=== PATIENT | female | born 1970 | race Caucasian/White ===

== ENCOUNTER 2017-01-09 13:41 | Observation (INO) | payer MEDICAID, OTHER ==
[2017-01-09 14:14] VITALS: BMI 26.5
--- NOTE | 2017-01-09 14:45 | C.PDOC ---
History Of Present Illness 46 yr old female with PMHx of anemia, presents to the ER for sore throat, headache, dizziness and feeling lightheaded and SOB while going upstairs, for the past 1 month. Patient states she has been infused in the past and admitted for anemia. Also reports of an ovarian cyst. Patient denies fever, chills, chest pain, nausea, vomiting, vaginal bleeding, weakness or numbness. Time Seen by Provider: 01/09/17 14:09 Chief Complaint (Nursing): ENT Problem History Per: Patient History/Exam Limitations: None Onset/Duration Of Symptoms: Days (1 month ) Current Symptoms Are (Timing): Still Present Past Medical History Reviewed: Historical Data, Nursing Documentation, Vital Signs Vital Signs: Last Vital Signs Temp 98.3 F 01/09/17 14:18 Pulse 87 01/09/17 14:18 Resp 20 01/09/17 14:18 BP 103/68 01/09/17 14:18 Pulse Ox 100 01/09/17 16:04 - Medical History PMH: Anemia - [facility] Procedures TETANUS TOXOID ADMINIST (01/08/14) Family History: States: No Known Family Hx - Social History Hx Tobacco Use: No Hx Alcohol Use: No Hx Substance Use: No - Immunization History Hx Tetanus Toxoid Vaccination: No Hx Influenza Vaccination: No Hx Pneumococcal Vaccination: No Review Of Systems Except As Marked, All Systems Reviewed And Found Negative. Constitutional: Negative for: Fever, Chills ENT: Positive for: Throat Pain (Sore throat ) Cardiovascular: Positive for: Light Headedness. Negative for: Chest Pain Gastrointestinal: Negative for: Nausea, Vomiting Genitourinary: Negative for: Vaginal Bleeding Neurological: Positive for: Headache, Dizziness. Negative for: Weakness, Numbness Physical Exam - Physical Exam Appears: Non-toxic, No Acute Distress Skin: Warm, Dry, Rash Head: Atraumatic, Normacephalic Eye(s): bilateral: PERRL, EOMI, Conjunctiva Pale Oral Mucosa: Moist Throat: Erythema, No Exudate, No Drooling Neck: Normal, Normal ROM, Supple Chest: Symmetrical, No Tenderness Cardiovascular: Rhythm Regular, No Murmur Respiratory: Normal Breath Sounds, No Rales, No Rhonchi, No Stridor, No Wheezing Extremity: Normal ROM, No Swelling Neurological/Psych: Oriented x3, Normal Speech, Normal Motor ED Course And Treatment - Laboratory Results Result Diagrams: 01/09/17 15:05 ECG: Interpreted By Me, Viewed By Me ECG Rhythm: Sinus Rhythm ECG Interpretation: Normal Rate From EC (BPM) O2 Sat by Pulse Oximetry: 100 (RA ) Pulse Ox Interpretation: Normal Medical Decision Making Medical Decision Making: PLAN: * EKG * CBC * HCG Urine * Urinalysis * Motrin PO * Tylenol PO * Dr Merrill bridal consultant, but not answering cell or office page. Will admit to Dr. Alexey pearson Disposition Discussed With Dr.: Donnie Pearson Doctor Will See Patient In The: Hospital Counseled Patient/Family Regarding: Studies Performed, Diagnosis - Disposition Disposition: HOSPITALIZED Disposition Time: 15:34 Condition: GUARDED - POA Present On Arrival: None - Clinical Impression Clinical Impression: Anemia - Scribe Statement The provider has reviewed the documentation as recorded by the Scribe Micaela Perez Provider Attestation: All medical record entries made by the Scribe were at my direction and personally dictated by me. I have reviewed the chart and agree that the record accurately reflects my personal performance of the history, physical exam, medical decision making, and the department course for this patient. I have also personally directed, reviewed, and agree with the discharge instructions and disposition. Decision To Admit - Pt Status Changed To: Hospital Disposition Of: Observation - . Bed Request Type: Telemetry Admitting Physician: Donnie Pearson Patient Diagnosis: Anemia
[2017-01-09 15:13] LABS: BASO # 0.1 K/uL (0.0-0.2); BASO % 0.7 % (0.0-2.0); EOS # 0.2 K/uL (0.0-0.7); EOS % 2.3 % (0.0-4.0); HEMATOCRIT 15.9 % (34.0-47.0); LYMPH # 1.3 K/uL (1.0-4.3); MEAN CELL VOLUME 62.2 fL (81.0-99.0); MEAN CORPUSCULAR HEMOGLOBIN 18.6 pg (27.0-31.0); MEAN CORPUSCULAR HGB CONC 29.9 g/dL (33.0-37.0); MEAN PLATELET VOLUME 8.7 fL (7.2-11.7); MONO # 0.6 K/uL (0.0-0.8); MONO % 7.3 % (0.0-10.0); RED CELL DISTRIBUTION WIDTH 30.1 % (11.5-14.5); WHITE BLOOD COUNT 7.6 K/uL (4.8-10.8)
[2017-01-09 15:22] LABS: URINE BILIRUBIN NEGATIVE (NEGATIVE); URINE BLOOD 2+ (NEGATIVE); URINE COLOR Yellow (YELLOW); URINE GLUCOSE (UA) NORMAL (Normal); URINE KETONE NEGATIVE (NEGATIVE); URINE LEUKOCYTE ESTERASE TRACE Leu/uL (Negative); URINE PROTEIN NEGATIVE (NEGATIVE); URINE UROBILINOGEN NORMAL mg/dL (0.2-1.0); WBC URINE 1 /hpf (0-5)
[2017-01-09 15:24] LABS: RBC URINE 4 /hpf (0-3)
[2017-01-09 16:19] LABS: CHLORIDE 105 mmol/L (98-107); SODIUM 140 mmol/L (132-148)
[2017-01-09 16:20] LABS: POTASSIUM 3.9 mmol/L (3.6-5.2)
[2017-01-09 16:21] LABS: GFR AFRICAN-AMERICAN > 60
[2017-01-09 16:22] LABS: ALB/GLOB RATIO 1.3 (1.0-2.1); ALKALINE PHOSPHATASE 84 U/L (38-126); ALT/SGPT 26 U/L (9-52); AST/SGOT 26 U/L (14-36); BILIRUBIN,TOTAL 0.3 mg/dL (0.2-1.3); BLOOD UREA NITROGEN 9 mg/dL (7-17); CALCIUM 8.1 mg/dl (8.6-10.4); CARBON DIOXIDE 23 mmol/L (22-30); GLUCOSE,RANDOM 87 mg/dL (65-105); TOTAL PROTEIN 6.9 g/dL (6.3-8.3)
--- NOTE | 2017-01-09 21:58 | CP.PCM.HP ---
History of Present Illness - History of Present Illness History of Present Illness: 46-year-old female with past medical history of anemia, presented to the ER for sore throat, headache, dizziness and feeling lightheaded and S OB with going upstairs, for the past 1 month. Patient states she has been infused in the past and admitted for anemia. Also reports of an ovarian cyst. Patient denies fever, chills, chest pain, nausea, vomiting, vaginal bleeding, weakness or numbness. Present on Admission - Present on Admission Any Indicators Present on Admission: No Past Patient History - Past Medical History & Family History Past Medical History?: Yes - Past Social History Smoking Status: Current Some Days Smoker - CARDIAC Hx Cardiac Disorders: No Hx Peripheral Edema: No - PULMONARY Hx Respiratory Disorders: Yes Hx Pneumonia: Yes - NEUROLOGICAL Hx Neurological Disorder: Yes Hx Dizziness: Yes - HEENT Hx HEENT Problems: No - RENAL Hx Chronic Kidney Disease: Yes Hx Kidney Stones: Yes - ENDOCRINE/METABOLIC Hx Endocrine Disorders: No - HEMATOLOGICAL/ONCOLOGICAL Hx Blood Disorders: Yes Hx Anemia: Yes - INTEGUMENTARY Hx Dermatological Problems: No - MUSCULOSKELETAL/RHEUMATOLOGICAL Hx Musculoskeletal Disorders: No Hx Falls: No - GASTROINTESTINAL Hx Gastrointestinal Disorders: No - GENITOURINARY/GYNECOLOGICAL Hx Genitourinary Disorders: Yes Other/Comment: Ovarian cyst - PSYCHIATRIC Hx Psychophysiologic Disorder: No Hx Substance Use: No - SURGICAL HISTORY Hx Surgeries: Yes Hx Tubal Ligation: Yes - ANESTHESIA Hx Anesthesia: Yes Hx Anesthesia Reactions: No Hx Malignant Hyperthermia: No Has any member of the family had a problem w/ anesthesia?: No Meds Home Medications: Home Medication List Medication Instructions Recorded Confirmed Type Docusate [Colace] 100 mg PO BID #30 cap 01/11/17 Rx Ferrous Sulfate 325 mg PO BID #60 tablet 01/11/17 Rx Folic Acid 1 mg PO DAILY #30 tab 01/11/17 Rx Allergies/Adverse Reactions: Allergies Allergy/AdvReac Type Severity Reaction Status Date / Time No Known Allergies Allergy Verified 01/09/17 14:08 Results - Vital Signs Recent Vital Signs: Last Vital Signs Temp 98.3 F 01/09/17 19:50 Pulse 70 01/09/17 19:50 Resp 17 01/09/17 19:50 BP 110/73 01/09/17 19:50 Pulse Ox 100 01/09/17 19:50 - Labs Result Diagrams: 01/11/17 06:08 01/09/17 15:30 Labs: Laboratory Results - last 24 hr 01/09/17 01/09/17 16:10 21:12 Retic Count 3.0 H Blood Type AB POSITIVE Antibody Screen Negative Assessment & Plan (1) Anemia Status: Acute (2) Bronchitis Status: Acute (3) Influenza Status: Acute (4) Lump of scalp Status: Acute (5) Lymphadenitis Status: Acute - Assessment and Plan (Free Text) Plan: 2 units of prbcs protonix hold lovenox scd hematolgy consult
[2017-01-09 22:33] LABS: FOLATE 13.5 ng/mL
--- NOTE | 2017-01-10 04:53 | CP.PCM.CON ---
History of Present Illness - History of Present Illness History of Present Illness: 46 year old female with a history of chronic anemia, menorrhagia, admitted with symptomatic anemia. The patient reports to progressive fatigue, dyspnea on exertion, and headache over the course of several weeks. She reports to heavy periods. She denies hematochezia, melena, and hematuria. She is currently s/p PRBC and reports to feeling better. Past medical history: Anemia Past surgical history: Family history: Denies hematologic and oncologic problems Social history: Denies tobacco, drinks heavily on weekends, denies illicit drug use. Allergies: NKA Review of systems: All remaining review of systems including HEENT, cardiovascular, respiratory, gastrointestinal, genitourinary, musculoskeletal, dermatologic, neurologic, and psychiatric are negative unless mentioned in the HPI. Past Patient History - Past Medical History & Family History Past Medical History?: Yes - Past Social History Smoking Status: Current Some Days Smoker - CARDIAC Hx Cardiac Disorders: No Hx Peripheral Edema: No - PULMONARY Hx Respiratory Disorders: Yes Hx Pneumonia: Yes - NEUROLOGICAL Hx Neurological Disorder: Yes Hx Dizziness: Yes - HEENT Hx HEENT Problems: No - RENAL Hx Chronic Kidney Disease: Yes Hx Kidney Stones: Yes - ENDOCRINE/METABOLIC Hx Endocrine Disorders: No - HEMATOLOGICAL/ONCOLOGICAL Hx Blood Disorders: Yes Hx Anemia: Yes - INTEGUMENTARY Hx Dermatological Problems: No - MUSCULOSKELETAL/RHEUMATOLOGICAL Hx Musculoskeletal Disorders: No Hx Falls: No - GASTROINTESTINAL Hx Gastrointestinal Disorders: No - GENITOURINARY/GYNECOLOGICAL Hx Genitourinary Disorders: Yes Other/Comment: Ovarian cyst - PSYCHIATRIC Hx Psychophysiologic Disorder: No Hx Substance Use: No - SURGICAL HISTORY Hx Surgeries: Yes Hx Tubal Ligation: Yes - ANESTHESIA Hx Anesthesia: Yes Hx Anesthesia Reactions: No Hx Malignant Hyperthermia: No Has any member of the family had a problem w/ anesthesia?: No Meds Allergies/Adverse Reactions: Allergies Allergy/AdvReac Type Severity Reaction Status Date / Time No Known Allergies Allergy Verified 01/09/17 14:08 - Medications Medications: Current Medications Ibuprofen (Motrin Tab) 600 mg PO TID PRN PRN Reason: Pain, moderate (4-7) Last Admin: 01/09/17 22:34 Dose: 600 mg Pantoprazole Sodium (Protonix Ec Tab) 40 mg PO DAILY AJ Physical Exam - Head Exam Head Exam: ATRAUMATIC - Eye Exam Eye Exam: Normal appearance - ENT Exam ENT Exam: Mucous Membranes Dry - Respiratory Exam Respiratory Exam: Clear to Auscultation Bilateral - Cardiovascular Exam Cardiovascular Exam: +S1, +S2 - GI/Abdominal Exam GI & Abdominal Exam: Normal Bowel Sounds - Extremities Exam Extremities exam: Positive for: normal inspection - Neurological Exam Neurological exam: Oriented x3 - Psychiatric Exam Psychiatric exam: Normal Affect, Normal Mood - Skin Skin Exam: Warm Results - Vital Signs Recent Vital Signs: Last Vital Signs Temp 99 F 01/10/17 01:00 Pulse 62 01/10/17 01:00 Resp 20 01/10/17 01:00 BP 112/75 01/10/17 01:00 Pulse Ox 100 01/09/17 23:30 - Labs Result Diagrams: 01/09/17 15:05 01/09/17 15:30 Labs: Laboratory Results - last 24 hr 01/09/17 01/09/17 01/09/17 16:10 21:12 23:02 Retic Count 3.0 H Ferritin 3.4 Vitamin B12 440 Folate 13.5 Stool Occult Blood Negative Blood Type AB POSITIVE Antibody Screen Negative Assessment & Plan (1) Anemia Assessment and Plan: will check ferritin, retic count, b12, folate, FOBT suspect secondary to menorrhagia agree with PRBC transfusion will treat with parenteral iron if confirmed iron deficiency Thank you for this interesting consult. Status: Acute
[2017-01-10 07:47] LABS: BASO # 0.1 K/uL (0.0-0.2); BASO % 1.2 % (0.0-2.0); EOS # 0.2 K/uL (0.0-0.7); EOS % 2.3 % (0.0-4.0); HEMATOCRIT 23.7 % (34.0-47.0); LYMPH # 1.6 K/uL (1.0-4.3); LYMPH % 20.6 % (20.0-40.0); MEAN CORPUSCULAR HGB CONC 31.1 g/dL (33.0-37.0); MEAN PLATELET VOLUME 9.3 fL (7.2-11.7); MONO # 0.5 K/uL (0.0-0.8); MONO % 6.9 % (0.0-10.0); NRBC % 0.1 % (0.0-2.0); RED CELL DISTRIBUTION WIDTH 28.7 % (11.5-14.5); WHITE BLOOD COUNT 7.9 K/uL (4.8-10.8)
[2017-01-10 07:48] LABS: MEAN CELL VOLUME 67.4 fL (81.0-99.0)
[2017-01-10] MEDS: Pantoprazole 40 mg EC Tab PO SCH (09:36)
[2017-01-10] MEDS: Ferric Sodium Gluconat Complex 62.5 mg/5 ml Vial IVPB SCH (09:36)
--- NOTE | 2017-01-10 13:31 | CP.PCM.CON ---
History of Present Illness - History of Present Illness History of Present Illness: OBGYN consult note for Dr. Herrera: OBGYN service was consulted by Dr. Perera for vaginal bleeding. She is a 46 year old female with PMHx of anemia, menorrhagia, and ovarian cyst. The patient reports that she came to the emergency room on 01/09 for sore throat , headache, dizziness and feeling lightheaded. She was told that her blood count was low and that she was anemic. She reports being anemic in the past requiring a transfusion many years ago. She stated that her LMP started on December 31 and that she stopped bleeding 2 days ago. She states that she is always dizzy and lightheaded while on her periods because she bleeds heavily with clots requiring over 10 pads a day. She states that she has had an US in the past and was told that she has a small ovarian cysts but can't remember which side. Patient currently admits to dizziness, she denies vaginal bleeding, f/c, abdominal/pelvic pain, vaginal discharge. Patient's Hgb was noted to be 4.8 on admission. She was given 2 units of PRBC and hgb came up to 7.4. She was started on IV Ferrlecit per Heme/On Dr. Restrepo. OB hx: , with one miscarriage at 4 months gestational age when she was in her early 20s, No D/C done. Children ages: 19,20,22,26, 27 all full term via vaginal delivery no complications during or at time of delivery (no abortions or ectopic pregnancies), Tubal ligation surgery 17 years ago [employer]: LMP: December 31, (stopped bleeding 2 days ago) menarche at age 16 have occurred monthly lasting 8-10 days with heavy bleeding uses 10+ pads daily. Last PAP 2 years ago, normal, Denies history of STIs. Has had an ultrasound in the past and showed ovarian cyst PMHx - anemia, menorrhagia, ovarian cyst Meds - denies Allergies - NKDA Fam Hx - denies hx of stoke, heart disease or any form of cancer Surgeries - Tubal ligation 17 years ago Social - Admits to social alcohol use, denies drug use, denies tobacco use, lives in [place] with her children, single, works at a [employer] Primary Care: none OBGYN: Last visit [address] [facility], does not have OBGYN currently Review of Systems - Constitutional Constitutional: Weakness. absent: Chills, Fever - EENT Eyes: absent: Blurred Vision, Change in Vision Ears: Dizziness Nose/Mouth/Throat: absent: Nasal Congestion, Nasal Discharge - Cardiovascular Cardiovascular: absent: Chest Pain, Chest Pain at Rest, Palpitations, Pedal Edema, Syncope - Respiratory Respiratory: absent: Cough, Dyspnea, Dyspnea on Exertion - Gastrointestinal Gastrointestinal: absent: Abdominal Pain, Constipation, Diarrhea, Nausea, Vomiting - Menstruation Menstruation: Menses >/= 8 Days, Heavy Menses - Musculoskeletal Musculoskeletal: absent: Numbness, Tingling - Neurological Neurological: Dizziness Past Patient History - Past Medical History & Family History Past Medical History?: Yes - Past Social History Smoking Status: Current Some Days Smoker - CARDIAC Hx Cardiac Disorders: No Hx Peripheral Edema: No - PULMONARY Hx Respiratory Disorders: Yes Hx Pneumonia: Yes - NEUROLOGICAL Hx Neurological Disorder: Yes Hx Dizziness: Yes - HEENT Hx HEENT Problems: No - RENAL Hx Chronic Kidney Disease: Yes Hx Kidney Stones: Yes - ENDOCRINE/METABOLIC Hx Endocrine Disorders: No - HEMATOLOGICAL/ONCOLOGICAL Hx Blood Disorders: Yes Hx Anemia: Yes - INTEGUMENTARY Hx Dermatological Problems: No - MUSCULOSKELETAL/RHEUMATOLOGICAL Hx Musculoskeletal Disorders: No Hx Falls: No - GASTROINTESTINAL Hx Gastrointestinal Disorders: No - GENITOURINARY/GYNECOLOGICAL Hx Genitourinary Disorders: Yes Other/Comment: Ovarian cyst - PSYCHIATRIC Hx Psychophysiologic Disorder: No Hx Substance Use: No - SURGICAL HISTORY Hx Surgeries: Yes Hx Tubal Ligation: Yes - ANESTHESIA Hx Anesthesia: Yes Hx Anesthesia Reactions: No Hx Malignant Hyperthermia: No Has any member of the family had a problem w/ anesthesia?: No Meds Allergies/Adverse Reactions: Allergies Allergy/AdvReac Type Severity Reaction Status Date / Time No Known Allergies Allergy Verified 01/09/17 14:08 - Medications Medications: Current Medications Ferric Sodium Gluconate Complex (Ferrlecit) 125 mg IVPB DAILY [facility] Stop: 01/15/17 10:01 Last Admin: 01/10/17 09:36 Dose: 125 mg Ibuprofen (Motrin Tab) 600 mg PO TID PRN PRN Reason: Pain, moderate (4-7) Last Admin: 01/09/17 22:34 Dose: 600 mg Pantoprazole Sodium (Protonix Ec Tab) 40 mg PO DAILY [facility] Last Admin: 01/10/17 09:36 Dose: 40 mg Physical Exam - Constitutional Appears: Non-toxic, No Acute Distress - Head Exam Head Exam: ATRAUMATIC, NORMAL INSPECTION - Eye Exam Eye Exam: EOMI, Normal appearance, PERRL Additional comments: pallor - ENT Exam ENT Exam: Mucous Membranes Moist - Respiratory Exam Respiratory Exam: Clear to Auscultation Bilateral, NORMAL BREATHING PATTERN. absent: Accessory Muscle Use, Chest Wall Tenderness, Respiratory Distress - Cardiovascular Exam Cardiovascular Exam: REGULAR RHYTHM, +S1, +S2 - GI/Abdominal Exam GI & Abdominal Exam: Normal Bowel Sounds, Soft. absent: Distended, Firm, Guarding, Tenderness - Exam Additional comments: Normal vaginal exam. No blood seen. Non tender. No lesions - Extremities Exam Extremities exam: Positive for: normal inspection. Negative for: calf tenderness, pedal edema - Back Exam Back exam: NORMAL INSPECTION. absent: CVA tenderness (L), CVA tenderness (R), paraspinal tenderness - Neurological Exam Neurological exam: Alert, Oriented x3 - Psychiatric Exam Psychiatric exam: Normal Affect, Normal Mood - Skin Skin Exam: Dry, Intact, Normal Color, Warm Results - Vital Signs Recent Vital Signs: Last Vital Signs Temp 98.0 F 01/10/17 09:09 Pulse 63 01/10/17 09:09 Resp 20 01/10/17 09:09 BP 113/74 01/10/17 09:09 Pulse Ox 100 01/10/17 09:09 - Labs Result Diagrams: 01/10/17 07:17 01/09/17 15:30 Labs: Laboratory Results - last 24 hr 01/09/17 01/09/17 01/09/17 16:10 21:12 23:02 WBC RBC Hgb Hct MCV MCH MCHC RDW Plt Count MPV Neut % (Auto) Lymph % (Auto) [place] % (Auto) Eos % (Auto) Baso % (Auto) Neut # Lymph # [place] # Eos # Baso # Retic Count 3.0 H Ferritin 3.4 Vitamin B12 440 Folate 13.5 Stool Occult Blood Negative Blood Type AB POSITIVE Antibody Screen Negative 01/10/17 07:17 WBC 7.9 RBC 3.51 L Hgb 7.4 L D Hct 23.7 L MCV 67.4 L D MCH 21.0 L MCHC 31.1 L RDW 28.7 H Plt Count 272 MPV 9.3 Neut % (Auto) 69.0 Lymph % (Auto) 20.6 [place] % (Auto) 6.9 Eos % (Auto) 2.3 Baso % (Auto) 1.2 Neut # 5.5 Lymph # 1.6 [place] # 0.5 Eos # 0.2 Baso # 0.1 Retic Count Ferritin Vitamin B12 Folate Stool Occult Blood Blood Type Antibody Screen Assessment & Plan - Assessment and Plan (Free Text) Assessment: Menorrhagia with associated symptomatic anemia, improving s/p 3 Units PRBC hgb today 7.4 (was 4.8 yesterday on admission) Started on IV ferrlecit per heme/onc possible hx ovarian cyst per patient Transvaginal pelvic US shows trace fluid within the endometrial canal. Uterus and adnexa within normal limits. Both ovarian visualized and measured no solid mass normal flow. Normal vaginal exam Patient currently denies vaginal bleeding Plan: No further intervention at this time. Patient is to follow up at the [facility] with Dr. Upton as a walk in this coming Monday 01/15. She is to come at 8 AM. Thank you for the consult.
--- NOTE | 2017-01-10 13:37 | US ---
HISTORY: Vaginal bleeding. LMP 01/09/2017. COMPARISON: None available. TECHNIQUE: Transabdominal, transvaginal. Real -time technique with 2D, duplex and color Doppler. FINDINGS: UTERUS: Measures 4.4 x 6.1 x 8.5 cm. Heterogeneous echo characteristics, otherwise no significant findings. No fibroid or other mass lesion seen. ENDOMETRIUM: Measures 5.4 mm in diameter. Fluid identified within the endometrial canal. CERVIX: No cervical abnormality identified. RIGHT OVARY: Measures 1.2 x 2.3 cm. No solid mass. Normal flow. LEFT OVARY: Measures 1.5 x 2.3 cm. No solid mass. Normal flow. FREE FLUID: No significant free fluid noted. OTHER FINDINGS: None. IMPRESSION: Unremarkable pelvic ultrasound. PROCEDURE: Trace fluid within the endometrial canal. Otherwise unremarkable endometrium. Uterus and adnexa within normal limits.
--- NOTE | 2017-01-10 14:32 | CP.PCM.CON ---
Past Patient History - Past Medical History & Family History Past Medical History?: Yes - Past Social History Smoking Status: Current Some Days Smoker - CARDIAC Hx Cardiac Disorders: No Hx Peripheral Edema: No - PULMONARY Hx Respiratory Disorders: Yes Hx Pneumonia: Yes - NEUROLOGICAL Hx Neurological Disorder: Yes Hx Dizziness: Yes - HEENT Hx HEENT Problems: No - RENAL Hx Chronic Kidney Disease: Yes Hx Kidney Stones: Yes - ENDOCRINE/METABOLIC Hx Endocrine Disorders: No - HEMATOLOGICAL/ONCOLOGICAL Hx Blood Disorders: Yes Hx Anemia: Yes - INTEGUMENTARY Hx Dermatological Problems: No - MUSCULOSKELETAL/RHEUMATOLOGICAL Hx Musculoskeletal Disorders: No Hx Falls: No - GASTROINTESTINAL Hx Gastrointestinal Disorders: No - GENITOURINARY/GYNECOLOGICAL Hx Genitourinary Disorders: Yes Other/Comment: Ovarian cyst - PSYCHIATRIC Hx Psychophysiologic Disorder: No Hx Substance Use: No - SURGICAL HISTORY Hx Surgeries: Yes Hx Tubal Ligation: Yes - ANESTHESIA Hx Anesthesia: Yes Hx Anesthesia Reactions: No Hx Malignant Hyperthermia: No Has any member of the family had a problem w/ anesthesia?: No Meds Allergies/Adverse Reactions: Allergies Allergy/AdvReac Type Severity Reaction Status Date / Time No Known Allergies Allergy Verified 01/09/17 14:08 - Medications Medications: Current Medications Ferric Sodium Gluconate Complex (Ferrlecit) 125 mg IVPB DAILY [facility] Stop: 01/15/17 10:01 Last Admin: 01/10/17 09:36 Dose: 125 mg Ibuprofen (Motrin Tab) 600 mg PO TID PRN PRN Reason: Pain, moderate (4-7) Last Admin: 01/09/17 22:34 Dose: 600 mg Pantoprazole Sodium (Protonix Ec Tab) 40 mg PO DAILY [facility] Last Admin: 01/10/17 09:36 Dose: 40 mg Results - Vital Signs Recent Vital Signs: Last Vital Signs Temp 99.0 F 01/10/17 14:21 Pulse 73 01/10/17 14:21 Resp 14 01/10/17 14:21 BP 109/72 01/10/17 14:21 Pulse Ox 100 01/10/17 09:09 - Labs Result Diagrams: 01/10/17 07:17 01/09/17 15:30 Labs: Laboratory Results - last 24 hr 01/09/17 01/09/17 01/09/17 16:10 21:12 23:02 WBC RBC Hgb Hct MCV MCH MCHC RDW Plt Count MPV Neut % (Auto) Lymph % (Auto) [place] % (Auto) Eos % (Auto) Baso % (Auto) Neut # Lymph # [place] # Eos # Baso # Retic Count 3.0 H Ferritin 3.4 Vitamin B12 440 Folate 13.5 Stool Occult Blood Negative Blood Type AB POSITIVE Antibody Screen Negative 01/10/17 07:17 WBC 7.9 RBC 3.51 L Hgb 7.4 L D Hct 23.7 L MCV 67.4 L D MCH 21.0 L MCHC 31.1 L RDW 28.7 H Plt Count 272 MPV 9.3 Neut % (Auto) 69.0 Lymph % (Auto) 20.6 [place] % (Auto) 6.9 Eos % (Auto) 2.3 Baso % (Auto) 1.2 Neut # 5.5 Lymph # 1.6 [place] # 0.5 Eos # 0.2 Baso # 0.1 Retic Count Ferritin Vitamin B12 Folate Stool Occult Blood Blood Type Antibody Screen
--- NOTE | 2017-01-10 15:04 | CP.PCM.PN ---
Subjective - Date & Time of Evaluation Date of Evaluation: 01/10/17 Time of Evaluation: 13:20 - Subjective Subjective: clinically same Objective - Vital Signs/Intake and Output Vital Signs (last 24 hours): Temp Pulse Resp BP Pulse Ox 99.0 F 73 14 109/72 100 01/10/17 14:21 01/10/17 14:21 01/10/17 14:21 01/10/17 14:21 01/10/17 09:09 Intake and Output: 01/10/17 01/10/17 06:59 18:59 Intake Total 300 0 Balance 300 0 - Medications Medications: Current Medications Ferric Sodium Gluconate Complex (Ferrlecit) 125 mg IVPB DAILY [facility] Stop: 01/15/17 10:01 Last Admin: 01/10/17 09:36 Dose: 125 mg Ibuprofen (Motrin Tab) 600 mg PO TID PRN PRN Reason: Pain, moderate (4-7) Last Admin: 01/09/17 22:34 Dose: 600 mg Pantoprazole Sodium (Protonix Ec Tab) 40 mg PO DAILY [facility] Last Admin: 01/10/17 09:36 Dose: 40 mg - Labs Labs: 01/10/17 07:17 - Constitutional Appears: Well - Head Exam Head Exam: ATRAUMATIC, NORMAL INSPECTION, NORMOCEPHALIC - Eye Exam Eye Exam: EOMI, Normal appearance, PERRL Pupil Exam: NORMAL ACCOMODATION, PERRL - ENT Exam ENT Exam: Mucous Membranes Moist, Normal Exam - Neck Exam Neck Exam: Full ROM, Normal Inspection. absent: Lymphadenopathy - Respiratory Exam Respiratory Exam: Decreased Breath Sounds - Cardiovascular Exam Cardiovascular Exam: REGULAR RHYTHM, +S1, +S2 - GI/Abdominal Exam GI & Abdominal Exam: Soft, Diminished Bowel Sounds - Rectal Exam Rectal Exam: Deferred Assessment and Plan - Assessment and Plan (Free Text) Plan: 2 units of prbcs protonix hold lovenox scd hematolgy f/u
[2017-01-10 16:24] VITALS: RESP 20
[2017-01-11 06:21] LABS: BASO # 0.1 K/uL (0.0-0.2); BASO % 1.4 % (0.0-2.0); EOS # 0.2 K/uL (0.0-0.7); EOS % 2.5 % (0.0-4.0); HEMATOCRIT 28.5 % (34.0-47.0); LYMPH % 21.9 % (20.0-40.0); MEAN CELL VOLUME 70.3 fL (81.0-99.0); MEAN CORPUSCULAR HEMOGLOBIN 22.3 pg (27.0-31.0); MEAN CORPUSCULAR HGB CONC 31.7 g/dL (33.0-37.0); MEAN PLATELET VOLUME 8.8 fL (7.2-11.7); MONO # 0.5 K/uL (0.0-0.8); MONO % 5.3 % (0.0-10.0); NRBC % 0.2 % (0.0-2.0); RED CELL DISTRIBUTION WIDTH 28.8 % (11.5-14.5)
[2017-01-11 08:59] VITALS: BP 105/65; PULSE 70; TEMP 98; O2SAT 99
[2017-01-11] MEDS: Ferric Sodium Gluconat Complex 62.5 mg/5 ml Vial IVPB SCH (10:51)
[2017-01-11] MEDS: Pantoprazole 40 mg EC Tab PO SCH (10:51)
--- NOTE | 2017-01-11 13:29 | CP.PCM.DIS ---
<LuisitoSweta - Last Filed: 01/11/17 13:22> Provider - Provider Date of Admission: 01/09/17 16:05 Attending physician: Dr. Filipe Burns MD Primary care physician: none Consults: Dr. Kevin Restrepo - heme/onc Dr. Herrera - OBGYN Dr. Bravo - pulmonology Time Spent in preparation of Discharge (in minutes): 35 Diagnosis - Discharge Diagnosis (1) Anemia Status: c Comment: due to Menorrhagia. Take MV, FA, Iron, and colcace daily. F/U [facility] this Friday with [facility] Course - Lab Results Lab Results: Most Recent Lab Values WBC 9.0 K/uL (4.8-10.8) 01/11/17 06:08 RBC 4.06 Mil/uL (3.80-5.20) 01/11/17 06:08 Hgb 9.0 g/dL (11.0-16.0) L 01/11/17 06:08 Hct 28.5 % (34.0-47.0) L 01/11/17 06:08 MCV 70.3 fL (81.0-99.0) L D 01/11/17 06:08 MCH 22.3 pg (27.0-31.0) L 01/11/17 06:08 MCHC 31.7 g/dL (33.0-37.0) L 01/11/17 06:08 RDW 28.8 % (11.5-14.5) H 01/11/17 06:08 Plt Count 323 K/uL (130-400) 01/11/17 06:08 MPV 8.8 fL (7.2-11.7) 01/11/17 06:08 Neut % (Auto) 68.9 % (50.0-75.0) 01/11/17 06:08 Lymph % (Auto) 21.9 % (20.0-40.0) 01/11/17 06:08 [place] % (Auto) 5.3 % (0.0-10.0) 01/11/17 06:08 Eos % (Auto) 2.5 % (0.0-4.0) 01/11/17 06:08 Baso % (Auto) 1.4 % (0.0-2.0) 01/11/17 06:08 Neut # 6.2 K/uL (1.8-7.0) 01/11/17 06:08 Lymph # 2.0 K/uL (1.0-4.3) 01/11/17 06:08 [place] # 0.5 K/uL (0.0-0.8) 01/11/17 06:08 Eos # 0.2 K/uL (0.0-0.7) 01/11/17 06:08 Baso # 0.1 K/uL (0.0-0.2) 01/11/17 06:08 Differential Comment 01/11/17 06:08 Smear Path Review 01/09/17 15:05 Retic Count 3.0 % (0.5-1.5) H 01/09/17 21:12 Sodium 140 mmol/L (132-148) 01/09/17 15:30 Potassium 3.9 mmol/L (3.6-5.2) 01/09/17 15:30 Chloride 105 mmol/L (98-107) 01/09/17 15:30 Carbon Dioxide 23 mmol/L (22-30) 01/09/17 15:30 Anion Gap 16 (10-20) 01/09/17 15:30 BUN 9 mg/dL (7-17) 01/09/17 15:30 Creatinine 0.5 MG/DL (0.7-1.2) L 01/09/17 15:30 Est GFR ( Amer) > 60 01/09/17 15:30 Est GFR (Non-Af Amer) > 60 01/09/17 15:30 Random Glucose 87 mg/dL (65-105) 01/09/17 15:30 Calcium 8.1 mg/dl (8.6-10.4) L 01/09/17 15:30 Ferritin 3.4 ng/mL 01/09/17 21:12 Total Bilirubin 0.3 mg/dL (0.2-1.3) 01/09/17 15:30 AST 26 U/L (14-36) 01/09/17 15:30 ALT 26 U/L (9-52) 01/09/17 15:30 Alkaline Phosphatase 84 U/L (38-126) 01/09/17 15:30 Total Protein 6.9 g/dL (6.3-8.3) 01/09/17 15:30 Albumin 3.8 g/dL (3.5-5.0) 01/09/17 15:30 Globulin 3.0 gm/dL (2.2-3.9) 01/09/17 15:30 Albumin/Globulin Ratio 1.3 (1.0-2.1) 01/09/17 15:30 Vitamin B12 440 pg/mL (239-931) 01/09/17 21:12 Folate 13.5 ng/mL 01/09/17 21:12 Urine Color Yellow (YELLOW) 01/09/17 15:05 Urine Clarity Clear (Clear) 01/09/17 15:05 Urine pH 6.0 (5.0-8.0) 01/09/17 15:05 Ur Specific [place] 1.010 (1.003-1.030) 01/09/17 15:05 Urine Protein Negative mg/dL (NEGATIVE) 01/09/17 15:05 Urine Glucose (UA) Normal mg/dL (Normal) 01/09/17 15:05 Urine Ketones Negative mg/dL (NEGATIVE) 01/09/17 15:05 Urine Blood 2+ (NEGATIVE) H 01/09/17 15:05 Urine Nitrate Negative (NEGATIVE) 01/09/17 15:05 Urine Bilirubin Negative (NEGATIVE) 01/09/17 15:05 Urine Urobilinogen Normal mg/dL (0.2-1.0) 01/09/17 15:05 Ur Leukocyte Esterase Trace Lilly/uL (Negative) 01/09/17 15:05 Urine WBC (Auto) 1 /hpf (0-5) 01/09/17 15:05 Urine RBC (Auto) 4 /hpf (0-3) H 01/09/17 15:05 Ur Squamous Epith Cells < 1 /hpf (0-5) 01/09/17 15:05 Urine HCG, Qual Negative (NEGATIVE) 01/09/17 15:05 Stool Occult Blood Negative (NEGATIVE) 01/09/17 23:02 Blood Type AB POSITIVE 01/09/17 16:10 Antibody Screen Negative 01/09/17 16:10 - Hospital Course Hospital Course: PMHx - anemia, menorrhagia, ovarian cyst Meds - denies Allergies - NKDA Fam Hx - denies hx of stoke, heart disease or any form of cancer Surgeries - Tubal ligation 17 years ago Social - Admits to social alcohol use, denies drug use, denies tobacco use, lives in [place] with her children, single, works at a [employer] hx: , with one miscarriage at 4 months gestational age when she was in her early 20s, No D/C done. Children ages: 19,20,22,26, 27 all full term via vaginal delivery no complications during or at time of delivery (no abortions or ectopic pregnancies), Tubal ligation surgery 17 years ago [employer]: LMP: December 31, (stopped bleeding 2 days ago) menarche at age 16 have occurred monthly lasting 8-10 days with heavy bleeding uses 10+ pads daily. Last PAP 2 years ago, normal, Denies history of STIs. Has had an ultrasound in the past and showed ovarian cyst Primary Care: none OBGYN: Last visit 2 years ago at [facility], does not have OBGYN currently On Admission: 46 year old female with PMHx of anemia, menorrhagia, and ovarian cyst. The patient reports that she came to the emergency room on 01/09 for sore throat, headache, dizziness and feeling lightheaded. She was told that her blood count was low and that she was anemic. She reports being anemic in the past requiring a transfusion many years ago. She stated that her LMP started on December 31 and that she stopped bleeding 2 days ago. She states that she is always dizzy and lightheaded while on her periods because she bleeds heavily with clots requiring over 10 pads a day. She states that she has had an US in the past and was told that she has a small ovarian cysts but can't remember which side. Patient currently admits to dizziness, she denies vaginal bleeding, f/c, abdominal/pelvic pain, vaginal discharge. Patient's Hgb was noted to be 4.8 on admission. She was given 2 units of PRBC and hgb came up to 7.4. She was started on IV Ferrlecit per Heme/On Dr. Restrepo. She was admitted to Dr. Perera's service who then requested that she be transferred to hospitalist service. During Hospital Stay: She was given 3 units of PRBC and her hemoglobin elevated to 9. Patient is now asymptomatic. She denies vaginal bleeding or any other signs of bleeding. OBGYN was consulted. Transvaginal pelvic US showed trace fluid within the endometrial canal. Uterus and adnexa within normal limits. Both ovarian visualized and measured no solid mass normal flow. She can follow up outpatient for possible D/C. Heme/onc was also consulted, Dr. Restrepo and the patient was started on IV Ferrlecit. Patient is stable for discharge home today. Patient is to follow up in the [facility] this coming Friday at 8AM with Dr. Upton (OBGYN ) as a walk in. She is also to make an appointment there for a primary care visit since she does not have a primary care doctor. She is to take Folic Acid daily, Iron twice and day, and Colace twice a given. Scripts were written for her upon discharge. Patient is also to take a multivitamin daily which she can get over the counter. Patient is to return to the emergency room is symptoms return. All instructions explained to the patient and she agrees. (Please not this is a summary of hospital events. Please refer to EMR for full admission details) Discharge Exam - Head Exam Head Exam: ATRAUMATIC, NORMAL INSPECTION - Eye Exam Eye Exam: EOMI, Normal appearance, PERRL Pupil Exam: NORMAL ACCOMODATION - Respiratory Exam Respiratory Exam: Clear to PA & Lateral, NORMAL BREATHING PATTERN. absent: Accessory Muscle Use, Chest Wall Tenderness, Respiratory Distress - Cardiovascular Exam Cardiovascular Exam: REGULAR RHYTHM, +S1, +S2 - GI/Abdominal Exam GI & Abdominal Exam: Normal Bowel Sounds, Soft. absent: Distended, Firm, Guarding, Tenderness - Extremities Exam Extremities exam: normal inspection - Back Exam Back exam: NORMAL INSPECTION. absent: CVA tenderness (L), CVA tenderness (R), paraspinal tenderness - Neurological Exam Neurological exam: Alert, Normal Gait, Oriented x3 - Psychiatric Exam Psychiatric exam: Normal Affect, Normal Mood - Skin Skin Exam: Dry, Intact, Normal Color, Warm Discharge Plan - Discharge Medications Prescriptions: Docusate [Colace] 100 mg PO BID #30 cap Ferrous Sulfate 325 mg PO BID #60 tablet Folic Acid 1 mg PO DAILY #30 tab - Follow Up Plan Condition: GOOD Disposition: HOME/ ROUTINE Instructions: Anemia (DC) Additional Instructions: Patient is stable for discharge home. Patient is to follow up in the [facility] this coming Friday at 8AM with Dr. Upton (OBGYN ) as a walk in. She is also to make an appointment there for a primary care visit since she does not have a primary care doctor. She is to take Folic Acid daily, Iron twice and day, and Colace twice a given. Scripts were written for her upon discharge. Patient is also to take a multivitamin daily which she can get over the counter. Patient is to return to the emergency room is symptoms return. All instructions explained to the patient and she agrees. Referrals: [facility] [Outside] <Filipe Burns - Last Filed: 02/12/17 15:07> Provider - Provider Date of Admission: 01/09/17 16:05 Attending physician: Filipe Burns MD Hospital Course - Lab Results Lab Results: Most Recent Lab Values WBC 9.0 K/uL (4.8-10.8) 01/11/17 06:08 RBC 4.06 Mil/uL (3.80-5.20) 01/11/17 06:08 Hgb 9.0 g/dL (11.0-16.0) L 01/11/17 06:08 Hct 28.5 % (34.0-47.0) L 01/11/17 06:08 MCV 70.3 fL (81.0-99.0) L D 01/11/17 06:08 MCH 22.3 pg (27.0-31.0) L 01/11/17 06:08 MCHC 31.7 g/dL (33.0-37.0) L 01/11/17 06:08 RDW 28.8 % (11.5-14.5) H 01/11/17 06:08 Plt Count 323 K/uL (130-400) 01/11/17 06:08 MPV 8.8 fL (7.2-11.7) 01/11/17 06:08 Neut % (Auto) 68.9 % (50.0-75.0) 01/11/17 06:08 Lymph % (Auto) 21.9 % (20.0-40.0) 01/11/17 06:08 [place] % (Auto) 5.3 % (0.0-10.0) 01/11/17 06:08 Eos % (Auto) 2.5 % (0.0-4.0) 01/11/17 06:08 Baso % (Auto) 1.4 % (0.0-2.0) 01/11/17 06:08 Neut # 6.2 K/uL (1.8-7.0) 01/11/17 06:08 Lymph # 2.0 K/uL (1.0-4.3) 01/11/17 06:08 [place] # 0.5 K/uL (0.0-0.8) 01/11/17 06:08 Eos # 0.2 K/uL (0.0-0.7) 01/11/17 06:08 Baso # 0.1 K/uL (0.0-0.2) 01/11/17 06:08 Differential Comment 01/11/17 06:08 Smear Path Review 01/09/17 15:05 Retic Count 3.0 % (0.5-1.5) H 01/09/17 21:12 Sodium 140 mmol/L (132-148) 01/09/17 15:30 Potassium 3.9 mmol/L (3.6-5.2) 01/09/17 15:30 Chloride 105 mmol/L (98-107) 01/09/17 15:30 Carbon Dioxide 23 mmol/L (22-30) 01/09/17 15:30 Anion Gap 16 (10-20) 01/09/17 15:30 BUN 9 mg/dL (7-17) 01/09/17 15:30 Creatinine 0.5 MG/DL (0.7-1.2) L 01/09/17 15:30 Est GFR ( Amer) > 60 01/09/17 15:30 Est GFR (Non-Af Amer) > 60 01/09/17 15:30 Random Glucose 87 mg/dL (65-105) 01/09/17 15:30 Calcium 8.1 mg/dl (8.6-10.4) L 01/09/17 15:30 Ferritin 3.4 ng/mL 01/09/17 21:12 Total Bilirubin 0.3 mg/dL (0.2-1.3) 01/09/17 15:30 AST 26 U/L (14-36) 01/09/17 15:30 ALT 26 U/L (9-52) 01/09/17 15:30 Alkaline Phosphatase 84 U/L (38-126) 01/09/17 15:30 Total Protein 6.9 g/dL (6.3-8.3) 01/09/17 15:30 Albumin 3.8 g/dL (3.5-5.0) 01/09/17 15:30 Globulin 3.0 gm/dL (2.2-3.9) 01/09/17 15:30 Albumin/Globulin Ratio 1.3 (1.0-2.1) 01/09/17 15:30 Vitamin B12 440 pg/mL (239-931) 01/09/17 21:12 Folate 13.5 ng/mL 01/09/17 21:12 Urine Color Yellow (YELLOW) 01/09/17 15:05 Urine Clarity Clear (Clear) 01/09/17 15:05 Urine pH 6.0 (5.0-8.0) 01/09/17 15:05 Ur Specific [place] 1.010 (1.003-1.030) 01/09/17 15:05 Urine Protein Negative mg/dL (NEGATIVE) 01/09/17 15:05 Urine Glucose (UA) Normal mg/dL (Normal) 01/09/17 15:05 Urine Ketones Negative mg/dL (NEGATIVE) 01/09/17 15:05 Urine Blood 2+ (NEGATIVE) H 01/09/17 15:05 Urine Nitrate Negative (NEGATIVE) 01/09/17 15:05 Urine Bilirubin Negative (NEGATIVE) 01/09/17 15:05 Urine Urobilinogen Normal mg/dL (0.2-1.0) 01/09/17 15:05 Ur Leukocyte Esterase Trace Lilly/uL (Negative) 01/09/17 15:05 Urine WBC (Auto) 1 /hpf (0-5) 01/09/17 15:05 Urine RBC (Auto) 4 /hpf (0-3) H 01/09/17 15:05 Ur Squamous Epith Cells < 1 /hpf (0-5) 01/09/17 15:05 Urine HCG, Qual Negative (NEGATIVE) 01/09/17 15:05 Stool Occult Blood Negative (NEGATIVE) 01/09/17 23:02 Blood Type AB POSITIVE 01/09/17 16:10 Antibody Screen Negative 01/09/17 16:10 Attending/Attestation - Attestation I have personally seen and examined this patient.: Yes I have fully participated in the care of the patient.: Yes I have reviewed all pertinent clinical information, including history, physical exam and plan: Yes Notes (Text): Patient seen and examined with the resident. Agree with the resident's evaluation, assessment and plan. Patient's Hgb was noted to be 4.8 on admission. She was given 2 units of PRBC and hgb came up to 7.4. She was started on IV Ferrlecit per Margarita/On Dr. Restrepo. She was admitted to Dr. Perera's service who then requested that she be transferred to hospitalist service. She was given 3 units of PRBC and her hemoglobin elevated to 9. Patient is now asymptomatic. She denies vaginal bleeding or any other signs of bleeding. OBGYN was consulted. Transvaginal pelvic US showed trace fluid within the endometrial canal. Uterus and adnexa within normal limits. Both ovarian visualized and measured no solid mass normal flow. She can follow up outpatient for possible D/ C. Heme/onc was also consulted, Dr. Restrepo and the patient was started on IV Ferrlecit.
--- NOTE | 2017-01-11 14:08 | CP.PCM.PN ---
Subjective - Date & Time of Evaluation Date of Evaluation: 01/11/17 Time of Evaluation: 13:20 - Subjective Subjective: clinically same Objective - Vital Signs/Intake and Output Vital Signs (last 24 hours): Temp Pulse Resp BP Pulse Ox 98.0 F 70 20 105/65 99 01/11/17 08:57 01/11/17 10:00 01/11/17 08:57 01/11/17 08:57 01/11/17 08:57 - Medications Medications: Current Medications Ferric Sodium Gluconate Complex (Ferrlecit) 125 mg IVPB DAILY [facility] Stop: 01/15/17 10:01 Last Admin: 01/11/17 10:51 Dose: 125 mg Ibuprofen (Motrin Tab) 600 mg PO TID PRN PRN Reason: Pain, moderate (4-7) Last Admin: 01/11/17 00:19 Dose: 600 mg Pantoprazole Sodium (Protonix Ec Tab) 40 mg PO DAILY [facility] Last Admin: 01/11/17 10:51 Dose: 40 mg - Labs Labs: 01/11/17 06:08 - Constitutional Appears: Well - Head Exam Head Exam: ATRAUMATIC, NORMAL INSPECTION, NORMOCEPHALIC - Eye Exam Eye Exam: EOMI, Normal appearance, PERRL Pupil Exam: NORMAL ACCOMODATION, PERRL - ENT Exam ENT Exam: Mucous Membranes Moist, Normal Exam - Neck Exam Neck Exam: Full ROM, Normal Inspection. absent: Lymphadenopathy - Respiratory Exam Respiratory Exam: Decreased Breath Sounds - Cardiovascular Exam Cardiovascular Exam: REGULAR RHYTHM, +S1, +S2 - GI/Abdominal Exam GI & Abdominal Exam: Soft, Diminished Bowel Sounds - Rectal Exam Rectal Exam: Deferred
--- NOTE | 2017-02-07 11:55 | CARD ---
APPROVED REPORT EKG Measurement Heart [id number] <Conclusion> Normal sinus rhythm Normal ECG
== END 2017-01-11 18:15 | disposition home or self-care (01) ==
LOC: C.ER 13:41 → C.9E 16:05 → C.6T 17:18
PROVIDERS: ADMIT Internal Medicine Nephrology; ATTEND Internal Medicine
DX: D64.9 Anemia, unspecified (principal); R51 Headache; R06.02 Shortness of breath
CPT/HCPCS: 36415; 36430; 76830; 76856; 80053; 81001; 82607; 82728; 82746; 84703; 85025; 85044; 86850; 86900; 86920; 99285; G0328; G0378; J2916; P9051